=== PATIENT | female | born 1965 | race African-American/Black ===

== ENCOUNTER 2016-12-27 04:20 | Emergency (ER) | payer OTHER ==
[~2016-12-27] VITALS: Ht 167.6 cm; Wt 79.4 kg
[~2016-12-27 04:20] MED LIST: BACL10TA PO; KETO10TA PO; METO50TA10 PO; OMEP20CA5 PO; ORPH-16 PO; TRAZ-90 PO
[2016-12-27] MEDS ORDERED: IV NORMAL SALINE 1,000ML 1,000 ML IV ONE (04:45)
[2016-12-27] MEDS ORDERED: KETOROLAC 30 MG/ML VIAL. IV ONE (05:00)
[2016-12-27] MEDS ORDERED: ONDANSETRON PF 4 MG/2 ML VIAL. IV ONE ×2 (05:00→08:00)
[2016-12-27] MEDS ORDERED: fentaNYL PF 250 MCG/5 ML VIAL IV ONE (05:00)
[2016-12-27 05:01] LABS: BASO # 0.1 x10^3/uL (0.0-0.2); BASO % 1 % (0-3); EOS # 0.2 x10^3/uL (0.0-0.7); EOS % 2 % (0-3); HEMATOCRIT 38.3 % (36.0-47.0); HEMOGLOBIN 12.9 g/dL (12.0-15.5); LYMPH # 3.6 x10^3/uL (1.0-4.8); LYMPH % 42 % (24-48); MEAN CORPUSCULAR HEMOGLOBIN 30 pg (25-35); MEAN CORPUSCULAR HGB CONC 34 g/dL (31-37); MEAN CORPUSCULAR VOLUME 89 fL (79-100); MONO # 0.5 x10^3/uL (0.0-1.1); MONO % 6 % (0-9); NEUT # 4.2 x10^3uL (1.8-7.7); NEUT % 49 % (31-73); PLATELET COUNT 252 x10^3/uL (140-400); RED BLOOD COUNT 4.28 x10^6/uL (3.50-5.40); RED CELL DISTRIBUTION WIDTH 13.1 % (11.5-14.5); WHITE BLOOD COUNT 8.5 x10^3/uL (4.0-11.0)
[2016-12-27] MEDS ORDERED: fentaNYL PF 100 MCG/2 ML VIAL ONE (05:04)
--- NOTE | 2016-12-27 05:16 | ED.ADGEN ---
Past History Past Medical History: GERD, Migraines, Other (DENAE READ MD) Past Surgical History: Appendectomy, Hysterectomy (DENAE READ MD) Alcohol Use: None Drug Use: None (DENAE READ MD) Adult General Chief Complaint Chief Complaint Right flank pain (MALCOLM CLARK MD) Chief Complaint flank pain (DENAE READ MD) HPI HPI pt states she was awakened by pain about 3am. pain was uncontrollable so they called EMS. EMS states pt refused to move because of the pain. they state they were unable to get any information because the pain was so bad she refused to talk. ems gave 5mg versed and 50mcg fentanyl IV enroute (DENAE READ MD) HPI I took over care of patient from Dr. Read as 0600. Please refer to her history of present illness for full details of presentation. Basically this is a 51-year -old female who presented to the emergency department for severe right flank pain with no prior history. Symptoms started suddenly this morning and have not improved at time of my evaluation. (MALCOLM CLARK MD) Review of Systems Review of Systems Constitutional: Denies fever or chills [] Eyes: Denies change in visual acuity, redness, or eye pain [] HENT: Denies nasal congestion or sore throat [] Respiratory: Denies cough or shortness of breath [] Cardiovascular: No additional information not addressed in HPI [] GI: abdominal pain , no bloody stools or diarrhea [] : Denies dysuria or hematuria [] Musculoskeletal: right cva pain] Integument: Denies rash or skin lesions [] Neurologic: Denies headache, focal weakness or sensory changes [] Endocrine: Denies polyuria or polydipsia [] (DENAE READ MD) Review of Systems ROS reviewed from Dr. Read's note. Remains pertinent for right flank pain. (MALCOLM CLARK MD) Family History Family History pt denies kidney stones and aortic dissections or aneurysms (DENAE READ MD) Current Medications Current Medications Current Medications Medications (Trade) Dose Ordered Sig/Emerald Start Time Stop Time Status Last Admin Dose Admin Fentanyl Citrate (Fentanyl 2ml Vial) 100 mcg 1X ONCE 12/27/16 06:00 12/27/16 06:01 DC 12/27/16 05:58 100 MCG Fentanyl Citrate (Fentanyl 5ml Vial) 100 mcg 1X ONCE 12/27/16 05:00 12/27/16 05:01 DC Ketorolac Tromethamine (Toradol) 30 mg 1X ONCE 12/27/16 05:00 12/27/16 05:01 DC 12/27/16 05:00 30 MG Lorazepam (Ativan) 0.5 mg 1X ONCE 12/27/16 06:00 12/27/16 06:01 DC Ondansetron HCl (Zofran) 4 mg 1X ONCE 12/27/16 05:00 12/27/16 05:01 DC 12/27/16 05:00 4 MG Sodium Chloride 1,000 ml @ 1,000 mls/hr 1X ONCE 12/27/16 04:45 12/27/16 05:44 DC 12/27/16 04:53 1,000 MLS/HR Tamsulosin HCl (Flomax) 0.4 mg 1X ONCE 12/27/16 07:00 12/27/16 07:01 DC 12/27/16 06:39 0.4 MG (MALCOLM CLARK MD) Allergies Allergies Allergies Coded Allergies Type Severity Reaction Last Updated Verified hydromorphone Allergy Severe 05/18/14 No morphine Allergy Severe 05/18/14 No oxycodone Allergy Severe 05/18/14 No Tetracyclines Allergy Intermediate Nausea 05/09/14 No indomethacin Allergy Unknown 04/24/15 Yes (MALCOLM CLARK MD) Physical Exam Physical Exam Constitutional: Well developed, well nourished, pt writhing in bed. she repeats just stop the pain but refuses to answer any questions HENT: MMM dry Eyes: PERRLA, EOMI, conjunctiva normal, no discharge. [] Neck: Normal range of motion, no tenderness, supple, no stridor. [] Cardiovascular:Heart rate regular rhythm, no murmur [] Lungs & Thorax: Bilateral breath sounds clear to auscultation [] Abdomen: tender to palpate RUQ to RLQ and right flank Skin: Warm, dry, no erythema, no rash. [] Back: right cva tenderness Extremities: No tenderness, no cyanosis, no clubbing, ROM intact, no edema. [] Neurologic: Alert and oriented X 3,pt moving all extremities writhing in pain Psychologic: hysterical (DEANE READ MD) Physical Exam Constitutional: Lethargic, sedated, afebrile, vital signs stable. [] HENT: Normocephalic, atraumatic, bilateral external ears normal, oropharynx moist, no oral exudates, nose normal. [] Eyes: PERRLA, EOMI, conjunctiva normal, no discharge. [] Neck: Normal range of motion, no tenderness, supple, no stridor. [] Cardiovascular:Heart rate regular rhythm, no murmur [] Lungs & Thorax: Bilateral breath sounds clear to auscultation [] Abdomen: Bowel sounds normal, soft, right lower quadrant tenderness to palpation , no masses, no pulsatile masses. [] Skin: Warm, dry, no erythema, no rash. [] Back: Right CVA tenderness, no midline tenderness. [] Extremities: No tenderness, no cyanosis, no clubbing, ROM intact, no edema. [] Neurologic: Lethargic, sedated, follows commands, normal motor function, normal sensory function, no focal deficits noted. [] (MALCOLM CLARK MD) Current Patient Data Vital Signs Vital Signs Date Time Temp Pulse Resp B/P (MAP) Pulse Ox O2 Delivery O2 Flow Rate FiO2 12/27/16 06:29 78 20 137/85 (102) 100 Nasal Cannula 2.0 12/27/16 04:20 98.9 (MALCOLM CLARK MD) Lab Results Laboratory Tests Test 12/27/16 04:40 12/27/16 05:45 White Blood Count 8.5 x10^3/uL (4.0-11.0) Red Blood Count 4.28 x10^6/uL (3.50-5.40) Hemoglobin 12.9 g/dL (12.0-15.5) Hematocrit 38.3 % (36.0-47.0) Mean Corpuscular Volume 89 fL (79-100) Mean Corpuscular Hemoglobin 30 pg (25-35) Mean Corpuscular Hemoglobin Concent 34 g/dL (31-37) Red Cell Distribution Width 13.1 % (11.5-14.5) Platelet Count 252 x10^3/uL (140-400) Neutrophils (%) (Auto) 49 % (31-73) Lymphocytes (%) (Auto) 42 % (24-48) Monocytes (%) (Auto) 6 % (0-9) Eosinophils (%) (Auto) 2 % (0-3) Basophils (%) (Auto) 1 % (0-3) Neutrophils # (Auto) 4.2 x10^3uL (1.8-7.7) Lymphocytes # (Auto) 3.6 x10^3/uL (1.0-4.8) Monocytes # (Auto) 0.5 x10^3/uL (0.0-1.1) Eosinophils # (Auto) 0.2 x10^3/uL (0.0-0.7) Basophils # (Auto) 0.1 x10^3/uL (0.0-0.2) Sodium Level 142 mmol/L (136-145) Potassium Level 3.6 mmol/L (3.5-5.1) Chloride Level 107 mmol/L (98-107) Carbon Dioxide Level 28 mmol/L (21-32) Anion Gap 7 (6-14) Blood Urea Nitrogen 21 mg/dL (7-20) H Creatinine 1.2 mg/dL (0.6-1.0) H Estimated GFR (Cockcroft-Gault) 56.9 BUN/Creatinine Ratio 18 (6-20) Glucose Level 138 mg/dL (70-99) H Calcium Level 8.2 mg/dL (8.5-10.1) L Total Bilirubin 0.3 mg/dL (0.2-1.0) Aspartate Amino Transferase (AST) 16 U/L (15-37) Alanine Aminotransferase (ALT) 19 U/L (14-59) Alkaline Phosphatase 98 U/L (46-116) Total Protein 6.5 g/dL (6.4-8.2) Albumin 3.1 g/dL (3.4-5.0) L Albumin/Globulin Ratio 0.9 (1.0-1.7) L Urine Opiates Screen Neg (NEG) Urine Methadone Screen Neg (NEG) Urine Barbiturates Neg (NEG) Urine Phencyclidine Screen Neg (NEG) Urine Amphetamine/Methamphetamine Neg (NEG) Urine Benzodiazepines Screen Pos (NEG) Urine Cocaine Screen Neg (NEG) Urine Cannabinoids Screen Neg (NEG) Urine Ethyl Alcohol Neg (NEG) (MALCOLM CLARK MD) EKG EKG [] (DENAE READ MD) EKG Not performed (MALCOLM CLARK MD) Radiology/Procedures Radiology/Procedures [] (DENAE READ MD) Radiology/[place] [address] IMAGING REPORT Signed PATIENT: NIKOLE MEEKS I ACCOUNT: [id number] : 1965 LOCATION: ER AGE: 51 SEX: F EXAM STATUS: REG ER ORD. PHYSICIAN: DENAE READ MD REASON: right flank pain PROCEDURE: CT ABDOMEN PELVIS WO CONTRAST CT abdomen and pelvis without contrast: Reason for examination: Right flank pain. History of appendectomy. Helical images were obtained through the abdomen and pelvis with no intravenous or oral contrast. Reconstruction was performed in sagittal and coronal planes. Exposure: One or more of the following individualized dose reduction techniques were utilized for this examination: 1. Automated exposure control 2. Adjustment of the mA and/or kV according to patient size 3. Use of iterative reconstruction technique. The lung bases are clear. The heart size is normal with no pericardial effusion seen. No abnormality seen at the liver, spleen, gallbladder, pancreas or adrenal glands. The abdominal aorta and inferior vena cava show no acute abnormalities. The appendix is surgically absent. The intestinal tract shows a few scattered diverticuli in the colon without evidence of diverticulitis. The left kidney shows no renal mass, renal calculi, hydronephrosis or evidence of obstructive uropathy. The right kidney however shows no evidence of mass but there is some perinephric stranding and there appears to be moderate hydronephrosis and hydroureter related to a 5 mm calculus at the right ureterovesical junction. No other focal abnormalities are seen at the bladder. No pelvic masses are present. No acute bony abnormalities are seen. IMPRESSION: 5 mm calculus at the right ureteral vesicle junction causing moderate hydronephrosis with hydronephrosis and and hydroureter Electronically signed by: Derek Lugo MD (12/27/2016 6:00 AM) [facility] DICTATED AND SIGNED BY: DEREK LUGO MD DATE: 12/27/16 0552 CC: PCP,UNKNOWN; DENAE READ MD ~ (MALCOLM CLARK MD) Course & Med Decision Making Course & Med Decision Making The patient received a total of 250 g of fentanyl, 1 mg of Ativan, 30 mg of Toradol, and oral Flomax in the emergency department. On reevaluation, the patient is moderately sedated, however she still rates her pain as 10 out of 10. Patient has radiographic evidence of obstructing right distal ureteral stone. Patient also shows an elevated creatinine raising concern for possible early obstructive uropathy. The patient will need admission to the hospital with urology consultation for possible inpatient cystoscopy. Unfortunately, urology is not available at this time at [facility], thus the patient will need transfer to a facility with urology coverage. I contacted [facility] transfer line and spoke with the transfer nurse, Nikole, he stated that the patient will be accepted by Dr. Mcdonald of urology as a direct admission to [facility]. Spoke with the patient and patient's regarding plan of care and they were in agreement at time of decision to transfer. (MALCOLM CLARK MD) Final Impression Final Impression flank pain[] Problems: (DENAE READ MD) Final Impression 1. Distal ureteral stone with intractable ureteral colic 2. Moderate hydronephrosis 3. Acute renal insufficiency Problems: (MALCOLM CLARK MD) Dragon Disclaimer Dragon Disclaimer This electronic medical record was generated, in whole or in part, using a voice recognition dictation system. (DENAE READ MD) DENAE READ MD Dec 27, 2016 05:16 MALCOLM CLARK MD Dec 27, 2016 06:39
[2016-12-27 05:23] LABS: ALBUMIN 3.1 g/dL (3.4-5.0); ALBUMIN/GLOBULIN RATIO 0.9 (1.0-1.7); CALCIUM 8.2 mg/dL (8.5-10.1); CREATININE 1.2 mg/dL (0.6-1.0); GFR 56.9; POTASSIUM 3.6 mmol/L (3.5-5.1); TOTAL BILIRUBIN 0.3 mg/dL (0.2-1.0); TOTAL PROTEIN 6.5 g/dL (6.4-8.2)
[2016-12-27] MEDS ORDERED: fentaNYL PF 100 MCG/2 ML VIAL IV ONE ×3 (05:30→08:30)
[2016-12-27] MEDS ORDERED: LORazepam 2 MG/ML VIAL IV ONE ×2 (05:30→06:00)
--- NOTE | 2016-12-27 06:06 | RAD ---
CT abdomen and pelvis without contrast: Reason for examination: Right flank pain. History of appendectomy. Helical images were obtained through the abdomen and pelvis with no intravenous or oral contrast. Reconstruction was performed in sagittal and coronal planes. Exposure: One or more of the following individualized dose reduction techniques were utilized for this examination: 1. Automated exposure control 2. Adjustment of the mA and/or kV according to patient size 3. Use of iterative reconstruction technique. The lung bases are clear. The heart size is normal with no pericardial effusion seen. No abnormality seen at the liver, spleen, gallbladder, pancreas or adrenal glands. The abdominal aorta and inferior vena cava show no acute abnormalities. The appendix is surgically absent. The intestinal tract shows a few scattered diverticuli in the colon without evidence of diverticulitis. The left kidney shows no renal mass, renal calculi, hydronephrosis or evidence of obstructive uropathy. The right kidney however shows no evidence of mass but there is some perinephric stranding and there appears to be moderate hydronephrosis and hydroureter related to a 5 mm calculus at the right ureterovesical junction. No other focal abnormalities are seen at the bladder. No pelvic masses are present. No acute bony abnormalities are seen. IMPRESSION: 5 mm calculus at the right ureteral vesicle junction causing moderate hydronephrosis with hydronephrosis and and hydroureter Electronically signed by: Stefania Oliva MD (12/27/2016 6:00 AM) [facility]
[2016-12-27 06:38] LABS: BARBITURATES NEG (NEG); BENZODIAZEPINES POS (NEG); CANNABINOIDS NEG (NEG); COCAINE NEG (NEG); METHADONE NEG (NEG); OPIATES NEG (NEG); PHENCYCLIDINE NEG (NEG)
[2016-12-27 06:39] LABS: AMPHETAMINE/METHAMPHETAMINE NEG (NEG)
[2016-12-27] MEDS ORDERED: TAMSULOSIN 0.4 MG CAP.ER.24H. PO ONE (07:00)
[2016-12-27 07:35] VITALS: BP 129/65
[2016-12-27] MEDS ORDERED: fentaNYL PF 100 MCG/2 ML VIAL IM ONE (08:00)
[2016-12-27 08:30] LABS: BILIRUBIN,URINE NEG (NEG); CLARITY,URINE HAZY; COLOR,URINE YELLOW; GLUCOSE,URINE NEG (NEG); NITRITE,URINE NEG (NEG); UROBILINOGEN,URINE 0.2 mg/dL (0.2 mg/dL)
[2016-12-27 08:31] LABS: BACTERIA,URINE MOD /HPF (0-FEW); GRANULAR CASTS,URINE OCC /HPF; HYALINE CASTS, URINE OCC /HPF; SQUAMOUS EPITHELIAL CELL,UR MANY /LPF
[2016-12-27 08:32] LABS: AMORPHOUS SEDIMENT,UR PRESENT /HPF
== END 2016-12-27 08:10 | disposition short-term general hospital (02) ==
LOC: ER 04:20
DX: N23 Unspecified renal colic (principal); N13.30 Unspecified hydronephrosis; N20.1 Calculus of ureter; N28.9 Disorder of kidney and ureter, unspecified; K21.9 Gastro-esophageal reflux disease without esophagitis; G43.909 Migraine, unspecified, not intractable, without status migrainosus; Z88.5 Allergy status to narcotic agent; Z88.1 Allergy status to other antibiotic agents
CPT/HCPCS: 36415; 74176; 80053; 80307; 81001; 85027; 87086; 96361; 96374; 96375; 96376; 99285; J1885; J2060; J2405; J3010; G0479; J7030

== ENCOUNTER 2018-09-30 14:51 | Emergency (ER) | payer OTHER ==
[~2018-09-30] VITALS: Ht 167.6 cm; Wt 89.4 kg
[~2018-09-30 14:51] MED LIST changes: -METO50TA10 PO; +METO50TA29 PO; +TRAZ-86 PO; -TRAZ-90 PO
[2018-09-30] MEDS ORDERED: IV NORMAL SALINE 1,000ML 1,000 ML IV ONE (15:15)
--- NOTE | 2018-09-30 15:17 | PHYS DOC ---
Past History Past Medical History: Kidney Stones, Migraines Past Surgical History: Appendectomy, Hysterectomy Alcohol Use: Occasionally Drug Use: None Adult General Chief Complaint Chief Complaint: ABDOMINAL PAIN HPI HPI 53-year-old female presents with vomiting, diarrhea, and epigastric abdominal pain. Patient was feeling fine yesterday. Not long after she woke up this morning, she had an episode of diarrhea. She still got ready and went to work. At work she had several episodes of vomiting and diarrhea. She also has some epigastric cramping pain that she describes as moderate. It started after her first episode of vomiting. Patient denies blood in the stool or emesis. She denies fever or chills. She did take care of an infant over the weekend that had diarrhea. Review of Systems Review of Systems Constitutional: Denies fever or chills [] Eyes: Denies change in visual acuity, redness, or eye pain [] HENT: Denies nasal congestion or sore throat [] Respiratory: Denies cough or shortness of breath [] Cardiovascular: No additional information not addressed in HPI [] GI: Epigastric abdominal pain, nausea, vomiting, diarrhea [] : Denies dysuria or hematuria [] Musculoskeletal: Denies back pain or joint pain [] Integument: Denies rash or skin lesions [] Neurologic: Denies headache, focal weakness or sensory changes [] Endocrine: Denies polyuria or polydipsia [] All other systems were reviewed and found to be within normal limits, except as documented in this note. Current Medications Current Medications Current Medications Medications (Trade) Dose Ordered Sig/Emerald Start Time Stop Time Status Last Admin Dose Admin Ondansetron HCl (Zofran) 4 mg 1X ONCE 09/30/18 15:30 09/30/18 15:31 Sodium Chloride 1,000 ml @ 1,000 mls/hr 1X ONCE 09/30/18 15:15 09/30/18 16:14 Allergies Allergies Allergies Coded Allergies Type Severity Reaction Last Updated Verified hydromorphone Allergy Severe 09/30/18 No morphine Allergy Severe 09/30/18 No oxycodone Allergy Severe 09/30/18 No Tetracyclines Allergy Intermediate Nausea 09/30/18 No indomethacin Allergy Unknown 09/30/18 Yes Physical Exam Physical Exam Constitutional: Well developed, well nourished, mild acute distress, appears in pain, non-toxic appearance. [] HENT: Normocephalic, atraumatic, bilateral external ears normal, oropharynx moist, no oral exudates, nose normal. [] Eyes: PERRLA, EOMI, conjunctiva normal, no discharge. [] Neck: Normal range of motion, no tenderness, supple, no stridor. [] Cardiovascular:Heart rate regular rhythm, no murmur [] Lungs & Thorax: Bilateral breath sounds clear to auscultation [] Abdomen: Bowel sounds normal, soft, mild epigastric and LLQ tenderness, no masses, no pulsatile masses. [] Skin: Warm, dry, no erythema, no rash. [] Back: No tenderness, no CVA tenderness. [] Extremities: No tenderness, no cyanosis, no clubbing, ROM intact, no edema. [] Neurologic: Alert and oriented X 3, normal motor function, normal sensory function, no focal deficits noted. [] Psychologic: Affect normal, judgement normal, mood normal. [] Current Patient Data Vital Signs Vital Signs Date Time Temp Pulse Resp B/P (MAP) Pulse Ox O2 Delivery O2 Flow Rate FiO2 09/30/18 14:58 98.7 Room Air EKG EKG [] Radiology/Procedures Radiology/Procedures [] Impressions: EXAM: Chest, single view. HISTORY: Epigastric pain. COMPARISON: 04/24/2015. FINDINGS: A frontal view of the chest obtained. There is no infiltrate, pleural effusion or pneumothorax. The heart is normal in size. IMPRESSION: No acute pulmonary finding. Electronically signed by: Nkechi Castillo MD (09/30/2018 4:01 PM) [facility] DICTATED AND SIGNED BY: NKECHI CASTILLO MD DATE: 09/30/18 1601 CC: BLANK MAHAJAN DO; PCP,NO ~ Course & Med Decision Making Course & Med Decision Making Pertinent Labs and Imaging studies reviewed. (See chart for details) The patient's labs are unremarkable. Her chest x-ray is unremarkable. Her EKG is unremarkable. This is a likely viral illness. Her HEART score is 2. We have given the patient 4 mg of Zofran and a liter of normal saline. She's had no further vomiting. I will advise of care. She is stable for discharge at this time. [] Dragon Disclaimer Dragon Disclaimer This electronic medical record was generated, in whole or in part, using a voice recognition dictation system. Departure Departure: Impression: Primary Impression: Viral gastroenteritis Disposition: 01 HOME, SELF-CARE Condition: STABLE Referrals: PCP,NO (PCP) Patient Instructions: Viral Gastroenteritis, [id number] Scripts Ondansetron (ONDANSETRON ODT) 4 Mg Tab.rapdis 1 TAB PO PRN Q6-8HRS PRN for VOMITING, #16 TAB Prov: BLANK MAHAJAN DO 09/30/18 BLANK MAHAJAN DO Sep 30, 2018 15:17
--- NOTE | 2018-09-30 15:18 | EKG ---
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
[2018-09-30 15:26] LABS: BASO # 0.1 x10^3/uL (0.0-0.2); BASO % 1 % (0-3); EOS % 0 % (0-3); HEMATOCRIT 44.1 % (36.0-47.0); HEMOGLOBIN 14.8 g/dL (12.0-15.5); LYMPH # 0.9 x10^3/uL (1.0-4.8); LYMPH % 7 % (24-48); MEAN CORPUSCULAR HEMOGLOBIN 30 pg (25-35); MEAN CORPUSCULAR HGB CONC 34 g/dL (31-37); MEAN CORPUSCULAR VOLUME 89 fL (79-100); MONO # 0.4 x10^3/uL (0.0-1.1); MONO % 3 % (0-9); NEUT # 11.7 x10^3uL (1.8-7.7); NEUT % 90 % (31-73); PLATELET COUNT 273 x10^3/uL (140-400); RED BLOOD COUNT 4.98 x10^6/uL (3.50-5.40); RED CELL DISTRIBUTION WIDTH 13.2 % (11.5-14.5); WHITE BLOOD COUNT 13.1 x10^3/uL (4.0-11.0)
[2018-09-30] MEDS ORDERED: ONDANSETRON PF 4 MG/2 ML VIAL. IV ONE (15:30)
[2018-09-30] MEDS ORDERED: LIDO:MAALOX 1:1 20 ML SINGLE DOSE. PO ONE (15:45)
[2018-09-30] MEDS ORDERED: PANTOPRAZOLE IV 40 MG VIAL. IVP ONE (15:45)
[2018-09-30 15:52] LABS: ALBUMIN 3.7 g/dL (3.4-5.0); ALBUMIN/GLOBULIN RATIO 0.9 (1.0-1.7); CALCIUM 9.5 mg/dL (8.5-10.1); GFR 69.7; TOTAL BILIRUBIN 0.7 mg/dL (0.2-1.0); TOTAL PROTEIN 7.8 g/dL (6.4-8.2)
--- NOTE | 2018-09-30 16:04 | RAD ---
EXAM: Chest, single view. HISTORY: Epigastric pain. COMPARISON: 04/24/2015. FINDINGS: A frontal view of the chest obtained. There is no infiltrate, pleural effusion or pneumothorax. The heart is normal in size. IMPRESSION: No acute pulmonary finding. Electronically signed by: Nkechi Castillo MD (09/30/2018 4:01 PM) [place] [id number]
[2018-09-30 17:00] VITALS: BP 138/79
[2018-09-30] MEDS ORDERED: ONDA4TAB12 PO (17:04)
== END 2018-09-30 17:23 | disposition home or self-care (01) ==
LOC: ER 14:51
DX: A08.4 Viral intestinal infection, unspecified (principal); R11.2 Nausea with vomiting, unspecified; R19.7 Diarrhea, unspecified; G43.909 Migraine, unspecified, not intractable, without status migrainosus; Z87.442 Personal history of urinary calculi; Z90.89 Acquired absence of other organs; Z90.710 Acquired absence of both cervix and uterus; Z88.5 Allergy status to narcotic agent; Z88.1 Allergy status to other antibiotic agents
CPT/HCPCS: 36415; 71045; 80053; 83690; 84484; 85025; 93005; 96361; 96374; 96375; 99285; C9113; J2405; J3010; J7030